=== PATIENT | female | born 1980 | race Caucasian/White ===

== ENCOUNTER 2018-01-19 10:30 | Outpatient (REF) | payer BC, SELFPAY ==
[2018-01-19 22:33] LABS: Cholesterol 237 mg/dL (50-200); HDL Cholesterol 73 mg/dL (40-60); LDL CHOLESTEROL 147 mg/dL (<100); Triglyceride 122 mg/dL (30-150)
[2018-01-21 11:59] LABS: HIV-1/2 Ag & Ab Screen Negative (NEGAT)
[2018-01-21 15:25] LABS: Chlamydia Result Negative; GC Result Negative; Specimen Description URINE
== END 2018-01-19 10:50 ==
LOC: NCHCN 10:30
PROVIDERS: PCP Registered Nurse; Visit Provider Registered Nurse
DX: Z00.00 Encounter for general adult medical examination without abnormal findings (principal); Z11.3 Encounter for screening for infections with a predominantly sexual mode of transmission; Z11.4 Encounter for screening for human immunodeficiency virus [HIV]; Z13.220 Encounter for screening for lipoid disorders
CPT/HCPCS: 80061; 83721; 87389; 87491; 87591

== ENCOUNTER 2019-03-11 21:53 | Outpatient (REF) | payer OTHER, SELFPAY ==
--- NOTE | 2019-03-11 09:30 | PAPFT_PTH ---
PATIENT: Nieyc Norton LOC: [facility] U#:[id number] AGE/SX: 38/F ROOM: RE03/11/[address]: Rea Hobson : 1980 BED: DIS: 03/11/2019 SPEC #: [id number] RECD: 03/12/19 12:54 STATUS: ALESHA REQ #: [id number] GABRIEL: 03/11/19 09:[address]: Rea Hobson DEPT: [facility] Cytology RECD BY: Kristy Goldstein Tissues: 1 - CX/ENDOCX FOR PAP SMEARS Procedures: PAP THIN PREP/[facility] Screening HPV DNA PROBE Comments: [id number]
[2019-03-11 22:21] LABS: HCT 42.1 % (36.0-46.0); HGB 13.6 g/dL (12.0-15.5); Mean Corp. HGB Concentration 32.3 g/dL (32.0-36.0); Mean Corpuscular Hemoglobin 28.2 pg (27.0-33.0); Mean Corpuscular Volume 87.3 fL (80-95); Mean Platelet Volume 11.8 fL (8.0-11.0); Platelet Count 275 x1000/uL (130-400); RBC 4.82 m/cumm (4.00-5.20); RBC Distribution Width 13.1 % (11.7-14.6); White Blood Cell Count 9.75 k/cumm (4.4-10.8)
[2019-03-11 22:44] LABS: ALT 37 U/L (14-59); AST 24 U/L (15-37); Albumin 3.9 g/dL (3.4-5.0); Alkaline Phosphatase 77 U/L (46-116); BUN 12 mg/dL (7-18); Bilirubin, Total 0.7 mg/dL (0.2-1.0); Calcium 8.9 mg/dL (8.5-10.1); Chloride 104 mmol/L (98-107); Glucose 91 mg/dL (74-106); Sodium 140 mmol/L (136-145); Total Protein 7.3 g/dL (6.4-8.2)
[2019-03-11 22:58] LABS: Vitamin D 25 Total 26.7 ng/ml (30-100)
[2019-03-16 14:32] LABS: Calculated LDL 152 mg/dL; Cholesterol 247 mg/dL (<200); HDL Cholesterol 60 mg/dL (40-60); Triglyceride 174 mg/dL (<150)
== END 2019-03-11 22:13 ==
LOC: NCHCN 21:53
PROVIDERS: PCP Registered Nurse; Visit Provider Registered Nurse
DX: Z00.00 Encounter for general adult medical examination without abnormal findings (principal); Z13.29 Encounter for screening for other suspected endocrine disorder; Z13.21 Encounter for screening for nutritional disorder; Z13.0 Encounter for screening for diseases of the blood and blood-forming organs and certain disorders involving the immune mechanism; Z12.4 Encounter for screening for malignant neoplasm of cervix; Z11.51 Encounter for screening for human papillomavirus (HPV); Z13.220 Encounter for screening for lipoid disorders
CPT/HCPCS: 80053; 80061; 82306; 85027; 88142; 84443; 87624

== ENCOUNTER 2020-08-16 08:33 | Outpatient (REF) | payer OTHER, SELFPAY ==
[2020-08-17 15:13] LABS: Chlamydia Result Negative (Negative); GC Result Negative (Negative)
== END 2020-08-16 08:34 | disposition home or self-care (01) ==
LOC: NCHCN 08:33
PROVIDERS: PCP Registered Nurse; Visit Provider Registered Nurse
DX: Z11.3 Encounter for screening for infections with a predominantly sexual mode of transmission (principal)
CPT/HCPCS: 87491; 87591

== ENCOUNTER 2022-01-02 12:29 | Outpatient (REF) | payer OTHER, SELFPAY ==
--- NOTE | 2022-01-02 11:50 | SKI_PTH ---
PATIENT: Niecy Norton LOC: [facility] U#:[id number] AGE/SX: 41/F ROOM: RE01/02/[address]: Rea Hobson : 1980 BED: DIS: 01/02/2022 SPEC #: [id number] RECD: 01/03/22 12:38 STATUS: ALESHA RETunde #: [id number] GABRIEL: 01/02/22 11:[address]: Rea Hobson DEPT: Surgical Specimen RECD BY: Kristy Goldstein Tissues: 1 - SKIN BIOPSY(SHAVE/PUNCH) 2 - SKIN BIOPSY(SHAVE/PUNCH) Procedures: SKIN LEVEL 4 Comments: [id number]
== END 2022-01-02 12:30 | disposition home or self-care (01) ==
LOC: NCHCN 12:29
PROVIDERS: PCP Registered Nurse; Visit Provider Registered Nurse
DX: D22.5 Melanocytic nevi of trunk (principal)
CPT/HCPCS: 88305

== ENCOUNTER 2025-01-26 16:23 | Outpatient (REF) | payer OTHER, SELFPAY ==
--- NOTE | 2025-01-26 15:45 | PAPFT_PTH ---
PATIENT: Niecy Norton LOC: [facility]#:[id number] AGE/SX: 44/F ROOM: RE01/26/[address]: GALI: 1980 BED: DIS: 01/26/2025 SPEC #: [id number] RECD: 01/27/25 13:11 STATUS: ALESHA MALIN #: [id number] GABRIEL: 01/26/25 15:[address]: Lucy Ojeda DEPT: [facility] Cytology RECD BY: Kristy Goldstein ENTERED: 01/27/25 13:11 SP TYPE: PAPFT OTHR DR: Rea Hobson Tissues: 1 - CX/ENDOCX FOR PAP SMEARS Procedures: PAP THIN PREP/[facility] Screening HPV DNA PROBE Comments: [id number] (HPV 16 & 18/45)
[2025-01-26 21:01] LABS: Hemoglobin A1C 5.6 % (<5.7)
[2025-01-26 21:02] LABS: Cholesterol 219 mg/dL (<200); HDL Cholesterol 52 mg/dL (>40)
[2025-01-26 21:06] LABS: TSH (W/Ref FT4) 1.78 uIU/mL (0.55-4.78)
== END 2025-01-26 16:24 | disposition home or self-care (01) ==
LOC: NCHCN 16:23
PROVIDERS: PCP Registered Nurse; Visit Provider Family Medicine
DX: Z13.220 Encounter for screening for lipoid disorders (principal); E28.2 Polycystic ovarian syndrome; R73.03 Prediabetes; Z12.4 Encounter for screening for malignant neoplasm of cervix
CPT/HCPCS: 80061; 88142; 83036; 84443; 87624